=== PATIENT | male | born 1990 | race Caucasian/White ===

== ENCOUNTER 2018-07-27 11:45 | Emergency (ER) | payer SELFPAY ==
[~2018-07-27] VITALS: Ht 172.7 cm; Wt 64.9 kg
[2018-07-27 12:37] VITALS: Ht 172.7 cm; Wt 64.9 kg
[2018-07-27 13:27] VITALS: BP 166/69
== END 2018-07-27 13:27 | disposition home or self-care (01) ==
LOC: ED 11:45
DX: L03.114 Cellulitis of left upper limb (principal)